=== PATIENT | male | born 1955 | race Caucasian/White ===

== ENCOUNTER → 2017-09-14 | Outpatient (CLI) | payer OTHER ==
[~2017-09-14] MED LIST: D-2000 90 MG-201 TAB PO; DEPAKOTE500 MG PO; FLOMAX 0.40.4 MG/CAP PO; GLUCOPHAGE500 MG/TAB PO; LANTUS100 U/ML SC; LOPID 600M600 MG/TAB PO; MASON NATURAL1000 MG PO; MOBIC15 MG PO; NOVOLOG 100U100 U/M1 SQ; OS-CAL 500 + D1 TAB PO; PRINZIDE 12.5 M1 TA1 PO; PRINZIDE 12.5 M1 TAB PO; REQUIP XL8 MG PO; SYNTHROID 0.0.025 MG PO; TENORMIN 2525 MG/TAB; TENORMIN 2525 MG/TAB PO; TENORMIN100 MG PO; VITAMIN D31000 IU PO; ZESTORETIC 12.51 TA1 PO; ZETIA 10MG TAB10 MG PO; ZOLOFT 100MG100 MG PO; ZYRTEC 10MG10 MG PO
== END ==
LOC: MHCPAIN 10:37
DX: G89.29 Other chronic pain (principal); M54.12 Radiculopathy, cervical region; M47.812 Spondylosis without myelopathy or radiculopathy, cervical region; R51 Headache; M96.1 Postlaminectomy syndrome, not elsewhere classified
CPT/HCPCS: G0463

== ENCOUNTER 2017-09-16 09:25 | Day surgery (SDC) | payer OTHER ==
[~2017-09-16] VITALS: Ht 177.8 cm; Wt 107.7 kg
[~2017-09-16 09:25] MED LIST changes: -D-2000 90 MG-201 TAB PO; -FLOMAX 0.40.4 MG/CAP PO; -GLUCOPHAGE500 MG/TAB PO; -MASON NATURAL1000 MG PO; -MOBIC15 MG PO; -OS-CAL 500 + D1 TAB PO; -PRINZIDE 12.5 M1 TA1 PO; -REQUIP XL8 MG PO; -SYNTHROID 0.0.025 MG PO; -TENORMIN100 MG PO; -ZETIA 10MG TAB10 MG PO; -ZOLOFT 100MG100 MG PO; -ZYRTEC 10MG10 MG PO
[2017-09-16] MEDS ORDERED: REQUIP XL8 MG PO (10:04)
[2017-09-16] MEDS ORDERED: MASON NATURAL1000 MG PO (10:04)
[2017-09-16] MEDS ORDERED: SYNTHROID 0.0.025 MG PO (10:05)
[2017-09-16] MEDS ORDERED: PRINZIDE 12.5 M1 TA1 PO (10:05)
[2017-09-16] MEDS ORDERED: TENORMIN100 MG PO (10:06)
[2017-09-16] MEDS ORDERED: ZETIA 10MG TAB10 MG PO (10:09)
[2017-09-16] MEDS ORDERED: ZOLOFT 100MG100 MG PO (10:09)
[2017-09-16] MEDS ORDERED: GLUCOPHAGE500 MG/TAB PO (10:10)
[2017-09-16] MEDS ORDERED: D-2000 90 MG-201 TAB PO (10:10)
[2017-09-16] MEDS ORDERED: OS-CAL 500 + D1 TAB PO (10:10)
[2017-09-16 10:11] VITALS: BP 149/85; PULSE 76; TEMP 98.5
[2017-09-16] MEDS ORDERED: FLOMAX 0.40.4 MG/CAP PO (10:19)
[2017-09-16] MEDS ORDERED: MOBIC15 MG PO (10:19)
[2017-09-16] MEDS ORDERED: ZYRTEC 10MG10 MG PO (10:20)
[2017-09-16 11:30] VITALS: BP 126/76; PULSE 74; TEMP 97.5
[2017-09-16 11:45] VITALS: BP 120/67; PULSE 78
[2017-09-16 12:00] VITALS: BP 123/67; PULSE 77
[2017-09-16 13:27] VITALS: BP 139/85; PULSE 79
== END 2017-09-16 12:20 | disposition home or self-care (01) ==
LOC: SDCO 09:25
DX: Z12.11 Encounter for screening for malignant neoplasm of colon (principal); K57.30 Diverticulosis of large intestine without perforation or abscess without bleeding; E11.9 Type 2 diabetes mellitus without complications; E78.00 Pure hypercholesterolemia, unspecified; I10 Essential (primary) hypertension; Z90.49 Acquired absence of other specified parts of digestive tract; Z88.5 Allergy status to narcotic agent; Z88.0 Allergy status to penicillin; Z88.8 Allergy status to other drugs, medicaments and biological substances; Z86.010 Personal history of colon polyps
CPT/HCPCS: J2250; J3010

== ENCOUNTER → 2017-09-22 | Outpatient (CLI) | payer OTHER ==
[~2017-09-22] MED LIST changes: +D-2000 90 MG-201 TAB PO; +FLOMAX 0.40.4 MG/CAP PO; +GLUCOPHAGE500 MG/TAB PO; +MASON NATURAL1000 MG PO; +MOBIC15 MG PO; +OS-CAL 500 + D1 TAB PO; +PRINZIDE 12.5 M1 TA1 PO; +REQUIP XL8 MG PO; +SYNTHROID 0.0.025 MG PO; +TENORMIN100 MG PO; +ZETIA 10MG TAB10 MG PO; +ZOLOFT 100MG100 MG PO; +ZYRTEC 10MG10 MG PO
== END ==
LOC: MHCPAIN 13:56
DX: M54.12 Radiculopathy, cervical region (principal); M47.817 Spondylosis without myelopathy or radiculopathy, lumbosacral region
CPT/HCPCS: J1100; J2250; J3010; Q9967

== ENCOUNTER → 2017-10-07 | Outpatient (CLI) | payer OTHER | LOC: MHCPAIN 11:11 | DX: G89.29 Other chronic pain (principal); M50.90 Cervical disc disorder, unspecified, unspecified cervical region; M54.12 Radiculopathy, cervical region; M54.81 Occipital neuralgia; R51 Headache; M96.1 Postlaminectomy syndrome, not elsewhere classified | CPT/HCPCS: G0463 ==

== ENCOUNTER → 2017-10-13 | Outpatient (CLI) | payer OTHER | LOC: MHCPAIN 13:59 | DX: M50.90 Cervical disc disorder, unspecified, unspecified cervical region (principal); M54.12 Radiculopathy, cervical region | CPT/HCPCS: J1100; J2250; J3010; Q9967 ==

== ENCOUNTER → 2017-10-28 | Outpatient (CLI) | payer OTHER | LOC: MHCPAIN 11:45 | DX: G89.29 Other chronic pain (principal); M50.90 Cervical disc disorder, unspecified, unspecified cervical region; M54.12 Radiculopathy, cervical region; M54.81 Occipital neuralgia; R51 Headache; M96.1 Postlaminectomy syndrome, not elsewhere classified | CPT/HCPCS: G0463 ==

== ENCOUNTER → 2017-11-14 | Outpatient (CLI) | payer OTHER | LOC: MHCPAIN 13:15 | DX: M50.90 Cervical disc disorder, unspecified, unspecified cervical region (principal); M54.12 Radiculopathy, cervical region; R51 Headache ==

== ENCOUNTER → 2017-11-22 | Outpatient (CLI) | payer OTHER | LOC: MHCPAIN 14:07 | DX: G89.29 Other chronic pain (principal); M50.90 Cervical disc disorder, unspecified, unspecified cervical region; M54.12 Radiculopathy, cervical region; M54.81 Occipital neuralgia; M96.1 Postlaminectomy syndrome, not elsewhere classified; R51 Headache | CPT/HCPCS: G0463 ==

== ENCOUNTER 2017-11-25 16:36 | Inpatient (IN) | payer OTHER ==
[~2017-11-25] VITALS: Ht 180.3 cm; Wt 109.4 kg
[2017-11-25 16:58] LABS: BASO # 0.1 (0.0-0.2); BASO % 0.7 % (0.0-2.0); EOS # 0.2 (0.0-0.7); GRAN # 4.9 (1.4-6.5); GRAN % 58.9 % (42.2-75.2); HEMOGLOBIN 10.7 g/dl (13.5-18.0); LYMPH # 2.4 (1.2-3.4); LYMPH % 29.4 % (20.0-51.0); MEAN CELL VOLUME 85 fl (80.0-100.0); MEAN CORPUSCULAR HEMOGLOBIN 27 pg (27.0-31.0); MEAN CORPUSCULAR HGB CONC 32 g/dl (33.0-37.0); MEAN PLATELET VOLUME 10.9 fl (7.4-10.4); MONO # 0.7 (0.1-0.6); MONO % 8.6 % (1.7-9.3); PLATELET COUNT 181 K/mm3 (130-400); REDCELL DISTRIBUTION WIDTH-CV 14.6 % (11.5-14.5)
[2017-11-25 17:10] LABS: ALBUMIN 3.1 gm/dL (3.5-5.0); BILIRUBIN,TOTAL 0.3 mg/dL (0.0-1.0); C-REACTIVE PROTEIN 0.9 mg/dL (0.0-0.9); CALCIUM 8.2 mg/dL (8.4-10.2); CREATININE, serum 0.98 mg/dL (0.66-1.25); POTASSIUM 3.5 mmol/L (3.4-5.0); TOTAL PROTEIN 5.9 gm/dL (6.4-8.2)
[2017-11-25 20:00] VITALS: BP 115/53; BP 127/86; PULSE 57; PULSE 66; TEMP 97.5
[2017-11-25] MEDS ORDERED: MELATONIN5 M1 PO (20:46)
[2017-11-25 22:06] LABS: HEMATOCRIT 30.2 % (42.0-52.0); HEMOGLOBIN 9.9 g/dl (13.5-18.0)
[2017-11-25 23:36] LABS: MAGNESIUM 1.7 mg/dL (1.6-2.3); POTASSIUM 3.8 mmol/L (3.4-5.0)
[2017-11-26] VITALS: BP 109/63; PULSE 69; TEMP 97.7
[2017-11-26 04:00] VITALS: BP 116/57; PULSE 67; TEMP 98
[2017-11-26 04:10] LABS: BASO # 0.1 (0.0-0.2); BASO % 0.6 % (0.0-2.0); EOS # 0.2 (0.0-0.7); GRAN # 5.6 (1.4-6.5); LYMPH # 1.6 (1.2-3.4); LYMPH % 20.2 % (20.0-51.0); MEAN CELL VOLUME 86 fl (80.0-100.0); MEAN CORPUSCULAR HGB CONC 32 g/dl (33.0-37.0); MEAN PLATELET VOLUME 10.2 fl (7.4-10.4); MONO # 0.6 (0.1-0.6); MONO % 7.7 % (1.7-9.3); PLATELET COUNT 135 K/mm3 (130-400); REDCELL DISTRIBUTION WIDTH-CV 14.6 % (11.5-14.5)
[2017-11-26 04:14] LABS: HEMATOCRIT 30.8 % (42.0-52.0); HEMOGLOBIN 9.9 g/dl (13.5-18.0); MEAN CORPUSCULAR HEMOGLOBIN 28 pg (27.0-31.0)
[2017-11-26 04:16] LABS: CREATININE, serum 0.83 mg/dL (0.66-1.25); MAGNESIUM 1.6 mg/dL (1.6-2.3); POTASSIUM 3.8 mmol/L (3.4-5.0)
[2017-11-26 08:00] VITALS: BP 119/77; PULSE 73
[2017-11-26 10:29] LABS: HEMOGLOBIN 10.1 g/dl (13.5-18.0)
[2017-11-26 10:33] LABS: HEMATOCRIT 30.6 % (42.0-52.0)
[2017-11-26 16:15] LABS: HEMOGLOBIN 9.8 g/dl (13.5-18.0)
[2017-11-26 16:40] VITALS: BP 148/56; PULSE 72; TEMP 98.7
[2017-11-26 20:40] VITALS: BP 138/55; PULSE 66; TEMP 98.7
[2017-11-26 22:25] LABS: HEMATOCRIT 28.8 % (42.0-52.0); HEMOGLOBIN 9.7 g/dl (13.5-18.0)
[2017-11-27 00:06] VITALS: BP 134/58; PULSE 70; TEMP 99.1
[2017-11-27 04:29] LABS: HEMOGLOBIN 10.1 g/dl (13.5-18.0)
[2017-11-27 04:32] LABS: HEMATOCRIT 30.3 % (42.0-52.0)
[2017-11-27 05:08] VITALS: BP 143/53; PULSE 71; TEMP 98.6
[2017-11-27 07:57] VITALS: BP 153/63; PULSE 64; TEMP 98.6
[2017-11-27 09:53] LABS: HEMATOCRIT 28.8 % (42.0-52.0); HEMOGLOBIN 9.5 g/dl (13.5-18.0)
[2017-11-27 11:53] VITALS: BP 136/49; PULSE 69; TEMP 97.6
[2017-11-27 16:02] VITALS: BP 138/54; PULSE 79; TEMP 98.5
[2017-11-27 16:10] LABS: HEMOGLOBIN 9.7 g/dl (13.5-18.0)
[2017-11-27 21:25] VITALS: BP 144/60; PULSE 70; TEMP 97.9
[2017-11-27 23:49] LABS: HEMATOCRIT 27.8 % (42.0-52.0); HEMOGLOBIN 9.3 g/dl (13.5-18.0)
[2017-11-28 02:20] VITALS: BP 137/64; PULSE 72; TEMP 98
[2017-11-28 06:31] LABS: BASO # 0.1 (0.0-0.2); BASO % 0.8 % (0.0-2.0); EOS # 0.2 (0.0-0.7); EOS % 2.7 % (0-4.0); GRAN # 3.9 (1.4-6.5); GRAN % 58.6 % (42.2-75.2); LYMPH # 1.9 (1.2-3.4); LYMPH % 28.4 % (20.0-51.0); MEAN CELL VOLUME 83 fl (80.0-100.0); MEAN CORPUSCULAR HGB CONC 33 g/dl (33.0-37.0); MEAN PLATELET VOLUME 10.5 fl (7.4-10.4); MONO # 0.6 (0.1-0.6); MONO % 8.7 % (1.7-9.3); PLATELET COUNT 172 K/mm3 (130-400); RED BLOOD COUNT 3.43 M/mm3 (4.20-5.60); REDCELL DISTRIBUTION WIDTH-CV 14.6 % (11.5-14.5)
[2017-11-28 06:35] LABS: CALCIUM 8.9 mg/dL (8.4-10.2); CREATININE, serum 0.87 mg/dL (0.66-1.25); POTASSIUM 3.5 mmol/L (3.4-5.0)
[2017-11-28 06:36] LABS: HEMATOCRIT 28.6 % (42.0-52.0); HEMOGLOBIN 9.3 g/dl (13.5-18.0); MEAN CORPUSCULAR HEMOGLOBIN 27 pg (27.0-31.0)
[2017-11-28 08:19] VITALS: BP 133/48; PULSE 73; TEMP 98.2
== END 2017-11-28 12:55 | disposition home or self-care (01) | DRG 379 ==
LOC: COL.ER 16:36 → ICU 17:15 → MEDICAL 17:15
PROVIDERS: Family Medicine; Hospitalist; Internal Medicine; Internal Medicine Gastroenterology; Nurse Practitioner Family
PROC: 0DJ08ZZ Inspection of Upper Intestinal Tract, Via Natural or Artificial Opening Endoscopic (ICD-10-PCS; 2017-11-26)
PROC: 0W3P8ZZ Control Bleeding in Gastrointestinal Tract, Via Natural or Artificial Opening Endoscopic (ICD-10-PCS; principal; 2017-11-26 08:30)
PROC: 0DBN8ZX Excision of Sigmoid Colon, Via Natural or Artificial Opening Endoscopic, Diagnostic (ICD-10-PCS; 2017-11-26 08:30)
DX: K57.33 Diverticulitis of large intestine without perforation or abscess with bleeding (principal); D50.0 Iron deficiency anemia secondary to blood loss (chronic); M79.7 Fibromyalgia; I10 Essential (primary) hypertension; G20 Parkinson's disease; E11.9 Type 2 diabetes mellitus without complications; Z79.4 Long term (current) use of insulin; Z96.41 Presence of insulin pump (external) (internal); Z87.891 Personal history of nicotine dependence; J45.909 Unspecified asthma, uncomplicated; L29.9 Pruritus, unspecified; T37.3X5A Adverse effect of other antiprotozoal drugs, initial encounter; T36.8X5A Adverse effect of other systemic antibiotics, initial encounter
CPT/HCPCS: 99222-AI; 99232-AI; 99233-AI; 99239; C9113; J0744; J1200; J1815; J2405; J2704; J7030; J7050; Q9967

== ENCOUNTER → 2017-12-01 | Outpatient (CLI) | payer OTHER ==
[~2017-12-01] MED LIST changes: +MELATONIN5 M1 PO
== END ==
LOC: MHCPAIN 09:43
DX: M54.12 Radiculopathy, cervical region (principal); M50.90 Cervical disc disorder, unspecified, unspecified cervical region; R51 Headache

== ENCOUNTER → 2017-12-12 | Outpatient (CLI) | payer OTHER | LOC: MHCPAIN 14:47 | DX: M54.12 Radiculopathy, cervical region (principal); M50.90 Cervical disc disorder, unspecified, unspecified cervical region; M54.2 Cervicalgia | CPT/HCPCS: J2250; J3010 ==

== ENCOUNTER 2018-03-30 02:00 | Inpatient (IN) | payer OTHER ==
[2018-03-30] VITALS (175 sets, daily range): BP systolic 137–159; BP diastolic 63–93; PULSE 65–76; TEMP 97.8–99.1; O2SAT 90–99
[~2018-03-30] VITALS: Ht 177.8 cm; Wt 101.0 kg
[2018-03-30 02:38] LABS: ARTERIAL BLD GAS O2 SATURATION 96.9 % (92-100); ARTERIAL BLD GAS TCO2 CT 28.4; ARTERIAL BLOOD GAS HCO3 27.2 meq/L (22-26); ARTERIAL BLOOD GAS PCO2 40.4 mmHg (35-45); ARTERIAL BLOOD GAS PO2 93.3 mmHg (80-100); ARTERIAL BLOOD GAS pH 7.45 (7.35-7.45)
[2018-03-30 02:41] LABS: BASO # 0.1 (0.0-0.2); BASO % 0.4 % (0.0-2.0); EOS % 0.2 % (0-4.0); GRAN # 11.8 (1.4-6.5); GRAN % 86.3 % (42.2-75.2); HEMATOCRIT 40.2 % (42.0-52.0); HEMOGLOBIN 13.2 g/dl (13.5-18.0); LYMPH # 0.7 (1.2-3.4); LYMPH % 5.3 % (20.0-51.0); MEAN CELL VOLUME 79 fl (80.0-100.0); MEAN CORPUSCULAR HEMOGLOBIN 26 pg (27.0-31.0); MEAN CORPUSCULAR HGB CONC 33 g/dl (33.0-37.0); MEAN PLATELET VOLUME 10.5 fl (7.4-10.4); MONO % 7.3 % (1.7-9.3); PLATELET COUNT 200 K/mm3 (130-400); RED BLOOD COUNT 5.11 M/mm3 (4.20-5.60); REDCELL DISTRIBUTION WIDTH-CV 15.7 % (11.5-14.5)
[2018-03-30 02:55] LABS: ALANINE AMINOTRANSFERASE 22 U/L (21-72); ALBUMIN 4.3 gm/dL (3.5-5.0); ALKALINE PHOSPHATASE 55 U/L (50-136); ANION GAP 12 mmol/L (7-16); AST,SGOT 25 U/L (15-37); BLOOD UREA NITROGEN 11 mg/dL (9-20); CALCIUM 9.8 mg/dL (8.4-10.2); CARBON DIOXIDE 25 mmol/L (22-30); CHLORIDE 99 mmol/L (98-107); CREATININE, serum 0.93 mg/dL (0.66-1.25); GLUCOSE 88 mg/dL (74-106); POTASSIUM 3.6 mmol/L (3.4-5.0); SODIUM 136 mmol/L (137-145); TOTAL PROTEIN 7.8 gm/dL (6.4-8.2)
[2018-03-30 03:00] LABS: VALPROIC ACID (DEPAKENE) 30.3 ug/mL (50.0-100.0)
[2018-03-30 03:10] LABS: ALCOHOL(ethanol),MEDICAL < 10 mg/dL
[2018-03-30 03:13] LABS: C-REACTIVE PROTEIN 6.9 mg/dL (0.0-0.9)
[2018-03-30 03:26] LABS: TROPONIN-I < 0.012 ng/mL (0.000-0.035)
[2018-03-30 03:31] LABS: COLLECTION METHOD CLEAN CATCH
[2018-03-30 03:40] LABS: TSH w REFLEX 0.771 uIU/mL (0.465-4.680)
[2018-03-30 03:47] LABS: MUCOUS Present /lpf; PH 7 (5-8); SQUAMOUS EPITHELIAL 0-2 /hpf; URINE APPEARANCE Clear; URINE BACTERIA None Seen /hpf; URINE BILIRUBIN Negative (NEGATIVE); URINE BLOOD Negative (NEGATIVE); URINE COLOR Yellow; URINE GLUCOSE Negative (NEGATIVE); URINE KETONE 1+ (NEGATIVE); URINE LEUKOCYTE ESTERASE Negative (NEGATIVE); URINE NITRATE Negative (NEGATIVE); URINE PROTEIN(semi-quant) Negative (NEGATIVE); URINE RBC 0-2 /hpf; URINE UROBILINOGEN Negative (NEGATIVE)
[2018-03-30] MEDS ORDERED: TENORMIN100 MG PO (05:33)
[2018-03-30] MEDS ORDERED: ROBAXIN 75750 MG/TAB PO (05:37)
[2018-03-30] MEDS ORDERED: PERCOCET 325 MG1 TAB PO (05:38)
[2018-03-30] MEDS ORDERED: CIALIS5 MG PO (05:40)
[2018-03-30] MEDS ORDERED: ULTRAM ER100 MG PO (05:41)
[2018-03-30] MEDS ORDERED: VITAMIN D 1001000 IU (05:57)
--- NOTE | 2018-03-30 06:15 | NUR ---
PT A&O X3, OBTUNDED AT TIMES, FALLING ASLEEP IN THE MIDDLE OF RESPONDING TO QUESTIONS. PT SNORING WHEN ATEMPTING TO LISTEN TO LUNG SOUNDS. PT UNABLE TO STAY AWAKE TO PROPERLY ASSESS LUNG SOUNDS. PT'S INSPIRATION SOUNDS ARE CLEAR IN ALL CARDOZA. BOWEL SOUNDS HYPOACTIVE. PT DID HAVE C1-C3 FUSION IN [place] A WK AGO LAST TUESDAY. INCISION SITE LEFT ANTERIOR NECK. DRESSING IS GUAZE WITH TEGADERM; DRY CLEAN AND PARTIALLY INTACT. DRESSING IS PEELING OFF ON LEFT SIDE. UNDERNEATH ARE INTACT STERI-STRIP. THE MEDIAL NECK IS RED AND BRUISED. PT HAS INSULIN PUMP ON RIGHT LOWER ABD. PT DISCONNECTED PUMP. PT HAD JANA HOSE ON BILAT LEGS. PTS IN ICU WAITING ROOM; WENT TO GET ADDITIONAL INFORMATION ON PT, WAS UNABLE TO STAY AWAKE TO ANSWER QUESTIONS. 0700: FROM [id number] PT HAS ATTEMPTED THREE TIMES TO GET OF BED, FALLING ASLEEP SITTING ON EDGE OF BED DESPITE ALL 4 RAILS UP. PT INSTRUCTED TO USE CALL LIGHT. WHEN ASKED IF PT NEEDS ANYTHING HE RESPONDS NO, BUT THIRD ATTEMPT TO GET OUT OF BED PT NEEDS TO USE BATHROOM. PT AMBULATES WITHOUT DIFFICULTY TO TOILET, BUT FALLS ASLEEP ON TOILET. PT ASSISTED BACK TO BED FROM TOILET AND BED ALARM ACTIVATED.
[2018-03-30 06:49] LABS: MAGNESIUM 1.6 mg/dL (1.6-2.3); PHOSPHOROUS 3.4 mg/dL (2.5-4.5)
--- NOTE | 2018-03-30 07:02 | NUR ---
Bedside report recieved from FELICIA Cosme. Patient resting in bed. Bed alarmm armed at this time. Patient denies questions or needs. Care assumed.
--- NOTE | 2018-03-30 07:20 | NUR ---
Bed alarm sounds. Patient states he is trying to get up to use the bathroom. He is asked to use the call light for future attempts to get from bed and fall risk is outlined. Patient verbalizes understanding. Attempts to pass stool without success. Patient is returned to bed and alarm reset.
[2018-03-30 07:37] LABS: INR 1.2 (0.8-3.0); PROTHROMBIN TIME 13.1 SECONDS (9.7-12.8)
--- NOTE | 2018-03-30 09:08 | NUR ---
Initial visit; Patient thanked Epidemiology Investigator for looking in on him and was receptive to Epidemiology Investigator keeping him in her prayers. Patient stated he is not up to having prayer at this time.
--- NOTE | 2018-03-30 09:15 | NUR ---
Bed alarm sounds and patient is attempting to ambulate to bathroom alone again. Education is reinforced regarding fall risk. He is assisted to bathroom and attempts to void stool without success. He is returned to bed and alarm armed. Care ongoing.
--- NOTE | 2018-03-30 11:11 | NUR ---
SW and SW student attended clinical rounds. Patient lives independently at home with his . He see a PCP at [facility] and obtains prescriptions at [facility] as well. Patient does not use any DME or home health services at home. reports patient might be able to move upstairs this afternoon. No anticipated discharge needs at this time.
--- NOTE | 2018-03-30 11:17 | NUR ---
Report provided to FELICIA Rabago. Care transferred at this time.
--- NOTE | 2018-03-30 18:21 | NUR ---
Since arriving to the floor the pt has been resting on and off. He has had a constant pain in his neck but denied the desire for pain medication. Pt's has remained at the bedside; all questions answered. Pt is sitting up in the bed watching TV at this time and he denies further needs. Call light within reach.
--- NOTE | 2018-03-30 19:00 | NUR ---
Report given to FELICIA Prescott.
--- NOTE | 2018-03-30 20:30 | NUR ---
Initial shift asssessment done- denies pain,dressing to left anterior neck dry and intact- wants to take a shower tonight--will wrap IV site and let pt shower--Will put tel back on once out of shower
[2018-03-31 04:26] VITALS: BP 145/71; PULSE 66; TEMP 98.6
--- NOTE | 2018-03-31 05:50 | NUR ---
Did not sleep much last night- Up walking in the room, sitting in the chair/sitting at edge of bed-- now has been sleeping for the past 1-2 hours- no requests throughout the night. VSS. Urine was collected for lab test- sent to lab
[2018-03-31 06:42] LABS: BASO # 0.1 (0.0-0.2); BASO % 0.6 % (0.0-2.0); EOS # 0.1 (0.0-0.7); EOS % 1.7 % (0-4.0); GRAN # 5.7 (1.4-6.5); GRAN % 70.9 % (42.2-75.2); HEMATOCRIT 40.3 % (42.0-52.0); HEMOGLOBIN 12.9 g/dl (13.5-18.0); LYMPH # 1.5 (1.2-3.4); LYMPH % 18.2 % (20.0-51.0); MEAN CELL VOLUME 80 fl (80.0-100.0); MEAN CORPUSCULAR HEMOGLOBIN 26 pg (27.0-31.0); MEAN CORPUSCULAR HGB CONC 32 g/dl (33.0-37.0); MEAN PLATELET VOLUME 10.4 fl (7.4-10.4); MONO # 0.7 (0.1-0.6); MONO % 8.4 % (1.7-9.3); PLATELET COUNT 211 K/mm3 (130-400); RED BLOOD COUNT 5.03 M/mm3 (4.20-5.60); REDCELL DISTRIBUTION WIDTH-CV 15.7 % (11.5-14.5)
[2018-03-31 07:05] LABS: ALBUMIN 4.1 gm/dL (3.5-5.0); BILIRUBIN,TOTAL 0.9 mg/dL (0.0-1.0); CALCIUM 9.7 mg/dL (8.4-10.2); CREATININE, serum 0.89 mg/dL (0.66-1.25); POTASSIUM 3.8 mmol/L (3.4-5.0); TOTAL PROTEIN 7.7 gm/dL (6.4-8.2)
[2018-03-31 07:26] VITALS: BP 140/65; PULSE 63; TEMP 97.7
--- NOTE | 2018-03-31 08:17 | NUR ---
Pt alert and oriented. Pt ordering breakfast. Pt rates pain in neck /. Drsg has serous drainage noted on gauze and edge of tegaderm loose. Will redress per orders. Pt IV patent no redness or infiltration noted. Pt has call light in reach and denies needs.
[2018-03-31] MEDS ORDERED: LEVAQUIN 750MG750 M1 PO (08:47)
--- NOTE | 2018-03-31 10:00 | NUR ---
Initial visit; Patient thanked Medical Policy Specialist for visit and offering to keep him in her prayers and offering God's blessings.
--- NOTE | 2018-03-31 12:12 | NUR ---
Pt discharge instruction given and edu provided on diagnosis and discharge medications. Pt IV dc'd tip intact and no redness or infiltration noted. Pt verbalizes understanding of education and medication changes. Pt has discharge packet with instructions and follow up appt. Pt has all belongings. Pt's will be here after lunch to pick him up to go home.
== END 2018-03-31 14:45 | disposition home or self-care (01) | DRG 91 ==
LOC: COL.ER 02:00 → ICU 04:49 → EDBEDREQ 05:04 → ICU 06:54 → MEDICAL 06:54
PROVIDERS: Emergency Medicine; Nurse Practitioner Family; ADMIT Family Medicine
DX: G92 Toxic encephalopathy (principal); J18.9 Pneumonia, unspecified organism; I10 Essential (primary) hypertension; T40.2X5A Adverse effect of other opioids, initial encounter; G20 Parkinson's disease; E78.5 Hyperlipidemia, unspecified; J45.909 Unspecified asthma, uncomplicated; E11.9 Type 2 diabetes mellitus without complications; Z79.4 Long term (current) use of insulin; Z96.41 Presence of insulin pump (external) (internal); Z87.891 Personal history of nicotine dependence; E03.9 Hypothyroidism, unspecified; N40.0 Benign prostatic hyperplasia without lower urinary tract symptoms; G43.909 Migraine, unspecified, not intractable, without status migrainosus
CPT/HCPCS: 99223-AI; 99239; A4216; A9284; J0456; J0692; J0696; J1815; J3370; J7030; J7040; J7050

== ENCOUNTER 2019-02-16 01:57 | Emergency (ER) | payer OTHER ==
[~2019-02-16] VITALS: Ht 177.8 cm; Wt 102.3 kg
[~2019-02-16 01:57] MED LIST changes: +CIALIS5 MG PO; +LEVAQUIN 750MG750 M1 PO; +PERCOCET 325 MG1 TAB PO; +ROBAXIN 75750 MG/TAB PO; +ULTRAM ER100 MG PO; +VITAMIN D 1001000 IU
[2019-02-16 02:06] VITALS: TEMP 99.3
[2019-02-16 02:34] LABS: BASO % 0.2 % (0.0-2.0); GRAN # 15.4 (1.4-6.5); GRAN % 88.3 % (42.2-75.2); HEMATOCRIT 37.8 % (42.0-52.0); HEMOGLOBIN 12.6 g/dl (13.5-18.0); LYMPH # 0.5 (1.2-3.4); LYMPH % 2.9 % (20.0-51.0); MEAN CELL VOLUME 82 fl (80.0-100.0); MEAN CORPUSCULAR HEMOGLOBIN 27 pg (27.0-31.0); MEAN CORPUSCULAR HGB CONC 33 g/dl (33.0-37.0); MEAN PLATELET VOLUME 10.3 fl (7.4-10.4); MONO # 1.3 (0.1-0.6); MONO % 7.3 % (1.7-9.3); PLATELET COUNT 165 K/mm3 (130-400); RED BLOOD COUNT 4.61 M/mm3 (4.20-5.60); REDCELL DISTRIBUTION WIDTH-CV 14.4 % (11.5-14.5)
[2019-02-16 02:42] LABS: ALBUMIN 3.7 gm/dL (3.5-5.0); BILIRUBIN,TOTAL 1.1 mg/dL (0.0-1.0); CALCIUM 8.9 mg/dL (8.4-10.2); CREATININE, serum 0.98 (0.66-1.25); INR 1.2 (0.8-3.0); PROTHROMBIN TIME 14.4 SECONDS (9.7-12.8); TOTAL PROTEIN 6.7 gm/dL (6.4-8.2)
[2019-02-16 02:53] LABS: TROPONIN-I 0.013 ng/mL (0.000-0.035)
[2019-02-16 05:24] LABS: COLLECTION METHOD CLEAN CATCH
[2019-02-16 05:30] VITALS: BP 148/67; PULSE 77
[2019-02-16 05:43] LABS: MUCOUS Present /lpf; PH 5 (5-8); SQUAMOUS EPITHELIAL 0-2 /hpf; URINE APPEARANCE Cloudy; URINE BACTERIA None Seen /hpf; URINE BILIRUBIN Negative (NEGATIVE); URINE BLOOD 2+ (NEGATIVE); URINE COLOR Amber; URINE GLUCOSE 1+ (NEGATIVE); URINE KETONE Negative (NEGATIVE); URINE LEUKOCYTE ESTERASE 2+ (NEGATIVE); URINE NITRATE Negative (NEGATIVE); URINE PROTEIN(semi-quant) 2+ (NEGATIVE); URINE RBC 20-50 /hpf; URINE UROBILINOGEN Negative (NEGATIVE)
== END 2019-02-16 06:00 | disposition short-term general hospital (02) ==
LOC: COL.ER 01:57
PROVIDERS: Emergency Medicine
DX: A41.9 Sepsis, unspecified organism (principal); E11.9 Type 2 diabetes mellitus without complications; I10 Essential (primary) hypertension; E78.5 Hyperlipidemia, unspecified; Z90.49 Acquired absence of other specified parts of digestive tract; Z79.4 Long term (current) use of insulin
CPT/HCPCS: J0696; J3480; J7030; J7060

== ENCOUNTER 2019-10-11 18:57 | Emergency (ER) | payer OTHER ==
[~2019-10-11] VITALS: Ht 177.8 cm; Wt 104.5 kg
[2019-10-11 19:05] VITALS: TEMP 98.9
[2019-10-11] MEDS ORDERED: PRINIVIL20 MG PO (19:27)
[2019-10-11] MEDS ORDERED: ELIQUIS 5MG PO (19:29)
[2019-10-11] MEDS ORDERED: CORDARONE200 MG/TAB PO (19:29)
[2019-10-11] MEDS ORDERED: LOPRESSOR 225 MG/TAB PO (19:29)
[2019-10-11] MEDS ORDERED: NOVLOG SQ (19:30)
[2019-10-11 19:54] LABS: BASO # 0.1 (0.0-0.2); BASO % 0.5 % (0.0-2.0); EOS # 0.2 (0.0-0.7); EOS % 2.3 % (0-4.0); GRAN # 6.6 (1.4-6.5); GRAN % 72.6 % (42.2-75.2); HEMATOCRIT 42.6 % (42.0-52.0); HEMOGLOBIN 13.9 g/dl (13.5-18.0); LYMPH # 1.7 (1.2-3.4); LYMPH % 18.7 % (20.0-51.0); MEAN CELL VOLUME 83 fl (80.0-100.0); MEAN CORPUSCULAR HEMOGLOBIN 27 pg (27.0-31.0); MEAN CORPUSCULAR HGB CONC 33 g/dl (33.0-37.0); MEAN PLATELET VOLUME 10.7 fl (7.4-10.4); MONO # 0.5 (0.1-0.6); MONO % 5.6 % (1.7-9.3); PLATELET COUNT 207 K/mm3 (130-400); RED BLOOD COUNT 5.16 M/mm3 (4.20-5.60); REDCELL DISTRIBUTION WIDTH-CV 14.5 % (11.5-14.5)
[2019-10-11 20:03] LABS: ALBUMIN 3.9 gm/dL (3.5-5.0); BILIRUBIN,TOTAL 0.5 mg/dL (0.0-1.0); C-REACTIVE PROTEIN 0.7 mg/dL (0.0-0.9); CALCIUM 9.5 mg/dL (8.4-10.2); CREATININE, serum 1.13 (0.66-1.25); POTASSIUM 4.1 mmol/L (3.4-5.0); TOTAL PROTEIN 7.4 gm/dL (6.4-8.2)
[2019-10-11 20:14] LABS: ERYTHROCYTE SEDIMENTATION RATE 5 mm/hr (0-30)
[2019-10-11] MEDS ORDERED: DOXYCYCLINE HY100 MG PO (20:37)
[2019-10-11 20:58] VITALS: BP 131/68; PULSE 68
== END 2019-10-11 20:55 | disposition home or self-care (01) ==
LOC: COL.ER 18:57
PROVIDERS: Emergency Medicine
DX: L03.031 Cellulitis of right toe (principal); I10 Essential (primary) hypertension; E11.8 Type 2 diabetes mellitus with unspecified complications; I48.91 Unspecified atrial fibrillation; Z79.4 Long term (current) use of insulin; Z79.01 Long term (current) use of anticoagulants

== ENCOUNTER 2020-06-20 15:22 | Emergency (ER) | payer MEDICARE, OTHER ==
[~2020-06-20] VITALS: Ht 177.8 cm; Wt 104.5 kg
[~2020-06-20 15:22] MED LIST changes: +CORDARONE200 MG/TAB PO; +DOXYCYCLINE HY100 MG PO; +ELIQUIS 5MG PO; +LOPRESSOR 225 MG/TAB PO; +NOVLOG SQ; +PRINIVIL20 MG PO
[2020-06-20 15:32] VITALS: BP 148/85; TEMP 96.9
[2020-06-20] MEDS ORDERED: PERCOCET 325 MG1 TA2 PO (17:06)
[2020-06-20 17:38] VITALS: PULSE 54
== END 2020-06-20 17:38 | disposition home or self-care (01) ==
LOC: COL.ER 15:22
DX: S20.212A Contusion of left front wall of thorax, initial encounter (principal); E11.9 Type 2 diabetes mellitus without complications; I10 Essential (primary) hypertension; E78.5 Hyperlipidemia, unspecified; Z90.49 Acquired absence of other specified parts of digestive tract; Z87.891 Personal history of nicotine dependence; Z88.0 Allergy status to penicillin; Z88.1 Allergy status to other antibiotic agents; Z88.6 Allergy status to analgesic agent; Z88.8 Allergy status to other drugs, medicaments and biological substances; Z79.4 Long term (current) use of insulin; Z79.01 Long term (current) use of anticoagulants; Z79.890 Hormone replacement therapy; W22.8XXA Striking against or struck by other objects, initial encounter
CPT/HCPCS: A9284

== ENCOUNTER 2020-07-30 16:48 | Emergency (ER) | payer MEDICARE, OTHER ==
[~2020-07-30] VITALS: Ht 180.3 cm; Wt 104.5 kg
[~2020-07-30 16:48] MED LIST changes: +PERCOCET 325 MG1 TA2 PO
[2020-07-30] MEDS ORDERED: SEPTRA DS 8001 TAB PO (17:41)
[2020-07-30 18:00] VITALS: BP 138/64; PULSE 78; TEMP 98
== END 2020-07-30 18:00 | disposition home or self-care (01) ==
LOC: COL.ER 16:48
DX: L03.114 Cellulitis of left upper limb (principal); E11.40 Type 2 diabetes mellitus with diabetic neuropathy, unspecified; I10 Essential (primary) hypertension; E78.5 Hyperlipidemia, unspecified; Z23 Encounter for immunization; Z87.820 Personal history of traumatic brain injury; Z79.899 Other long term (current) drug therapy; Z79.01 Long term (current) use of anticoagulants; Z79.4 Long term (current) use of insulin

== ENCOUNTER 2020-10-06 16:21 | Emergency (ER) | payer MEDICARE, OTHER ==
[~2020-10-06] VITALS: Ht 177.8 cm; Wt 100.0 kg
[~2020-10-06 16:21] MED LIST changes: +SEPTRA DS 8001 TAB PO
[2020-10-06 19:43] VITALS: BP 135/83; PULSE 71; TEMP 98
== END 2020-10-06 19:45 | disposition home or self-care (01) ==
LOC: COL.ER 16:21
DX: S51.812A Laceration without foreign body of left forearm, initial encounter (principal); N40.0 Benign prostatic hyperplasia without lower urinary tract symptoms; E03.9 Hypothyroidism, unspecified; G20 Parkinson's disease; M79.7 Fibromyalgia; J45.909 Unspecified asthma, uncomplicated; I10 Essential (primary) hypertension; E11.40 Type 2 diabetes mellitus with diabetic neuropathy, unspecified; Z79.899 Other long term (current) drug therapy; Z79.4 Long term (current) use of insulin; Z79.01 Long term (current) use of anticoagulants; Z79.890 Hormone replacement therapy; Z79.891 Long term (current) use of opiate analgesic; W26.8XXA Contact with other sharp object(s), not elsewhere classified, initial encounter

== ENCOUNTER 2020-10-13 17:57 | Emergency (ER) | payer MEDICARE, OTHER ==
[~2020-10-13] VITALS: Ht 175.3 cm; Wt 100.5 kg
[2020-10-13 18:03] VITALS: TEMP 98.4
[2020-10-13] MEDS ORDERED: BACTRIM DS 8001 TAB PO (18:25)
[2020-10-13 18:30] VITALS: BP 146/72; PULSE 68
== END 2020-10-13 18:30 | disposition home or self-care (01) ==
LOC: COL.ER 17:57
DX: L03.114 Cellulitis of left upper limb (principal); E11.9 Type 2 diabetes mellitus without complications; I10 Essential (primary) hypertension; Z87.891 Personal history of nicotine dependence; Z88.0 Allergy status to penicillin; Z79.4 Long term (current) use of insulin; Z79.899 Other long term (current) drug therapy

== ENCOUNTER 2021-02-25 11:00 | Outpatient (RCR) | payer MEDICARE, OTHER ==
[~2021-02-25 11:00] MED LIST changes: +BACTRIM DS 8001 TAB PO
== END 2021-02-27 | disposition home or self-care (01) ==
LOC: WSPT
DX: S24.133A Anterior cord syndrome at T7-T10 level of thoracic spinal cord, initial encounter (principal)

== ENCOUNTER → 2021-04-07 | Outpatient (CLI) | payer MEDICARE, OTHER | LOC: MHCPAIN 12:58 | DX: M47.814 Spondylosis without myelopathy or radiculopathy, thoracic region (principal); R93.7 Abnormal findings on diagnostic imaging of other parts of musculoskeletal system; M79.2 Neuralgia and neuritis, unspecified ==

== ENCOUNTER 2021-04-24 12:45 | Outpatient (RCR) | payer MEDICARE, OTHER | END 2021-04-27 | disposition home or self-care (01) | LOC: WSPT | DX: S24.13 Anterior cord syndrome of thoracic spinal cord (principal); X58.XXXD Exposure to other specified factors, subsequent encounter ==

== ENCOUNTER 2021-05-19 15:00 | Outpatient (RCR) | payer MEDICARE, OTHER | END 2021-05-28 | disposition home or self-care (01) | LOC: WSPT | DX: S24.133A Anterior cord syndrome at T7-T10 level of thoracic spinal cord, initial encounter (principal) ==

== ENCOUNTER 2021-06-24 15:45 | Outpatient (RCR) | payer MEDICARE, OTHER | END 2021-06-27 | disposition home or self-care (01) | LOC: WSC | DX: S24.13 Anterior cord syndrome of thoracic spinal cord (principal); X58.XXXD Exposure to other specified factors, subsequent encounter ==

== ENCOUNTER 2021-07-03 19:32 | Emergency (ER) | payer MEDICARE, OTHER ==
[~2021-07-03] VITALS: Ht 177.8 cm; Wt 100.0 kg
[2021-07-03 20:13] VITALS: TEMP 97.9
[2021-07-03] MEDS ORDERED: CEPHALEXIN500 M1 PO (20:49)
[2021-07-03 21:01] VITALS: BP 157/89; PULSE 88
== END 2021-07-03 21:05 | disposition home or self-care (01) ==
LOC: COL.ER 19:32
DX: L03.115 Cellulitis of right lower limb (principal); Z88.0 Allergy status to penicillin; W17.2XXA Fall into hole, initial encounter

== ENCOUNTER 2021-07-21 12:45 | Outpatient (RCR) | payer MEDICARE, OTHER ==
[~2021-07-21 12:45] MED LIST changes: +CEPHALEXIN500 M1 PO
== END 2021-07-28 | disposition home or self-care (01) ==
LOC: WSPT
DX: S24.13 Anterior cord syndrome of thoracic spinal cord (principal)

== ENCOUNTER → 2021-08-18 | Outpatient (CLI) | payer MEDICARE, OTHER | LOC: MHCPAIN 15:41 | DX: M54.6 Pain in thoracic spine (principal); M47.814 Spondylosis without myelopathy or radiculopathy, thoracic region; M79.2 Neuralgia and neuritis, unspecified; G95.89 Other specified diseases of spinal cord | CPT/HCPCS: G0463 ==

== ENCOUNTER → 2021-10-20 | Outpatient (CLI) | payer MEDICARE, OTHER | LOC: MHCPAIN 16:17 | DX: M47.814 Spondylosis without myelopathy or radiculopathy, thoracic region (principal); M54.6 Pain in thoracic spine; G95.89 Other specified diseases of spinal cord; M79.2 Neuralgia and neuritis, unspecified | CPT/HCPCS: G0463 ==

== ENCOUNTER 2021-11-17 21:57 | Emergency (ER) | payer MEDICARE, OTHER ==
[~2021-11-17] VITALS: Ht 177.8 cm; Wt 95.5 kg
[2021-11-17 22:11] VITALS: TEMP 98.1
[2021-11-17 23:19] VITALS: BP 146/73; PULSE 69
== END 2021-11-17 23:19 | disposition home or self-care (01) ==
LOC: COL.ER 21:57
DX: J06.9 Acute upper respiratory infection, unspecified (principal); Z87.891 Personal history of nicotine dependence; Z20.822 Contact with and (suspected) exposure to COVID-19